=== PATIENT | female | born 1995 | race Caucasian/White ===

== ENCOUNTER 2017-02-24 13:01 | Emergency (ER) | payer OTHER ==
[~2017-02-24] VITALS: Ht 177.8 cm; Wt 123.8 kg
[2017-02-24 13:05] VITALS: TEMP 36.7; Ht 177.8 cm; Wt 123.8 kg
[2017-02-24] MEDS ORDERED: BCPILLS PO (13:14)
[2017-02-24] MEDS ORDERED: SODIUM CHLORIDE 0.9% 1000ML 1,000 ML IV STA (13:22)
--- NOTE | 2017-02-24 13:23 | EMERGENCY ROOM VISIT NOTE ---
History Report prepared by Claude: Flaca Kelly Under the Supervision of: Dr. Jam Medina D.O. First contact with patient: 13:09 Chief Complaint: FLANK PAIN Stated Complaint: RT BACK PAIN, LEG NUMBNESS, NAUSEA, BODY PAIN History of Present Illness The patient is a 21 year old female who presents to the Emergency Room with complaints of intermittent right flank pain for the past several weeks. Yesterday she was riding in a car and states her pain worsened because of the vehicle's seats and the motion of driving. She rates her current pain as an 8/ 10. She admits to nausea from her pain. Advil has provided no relief. Occasionally her pain radiates into her right leg, and makes the leg feel "numb ". She denies any chronic medical problems. She denies any abdominal pain or urinary symptoms. She denies any prior history of kidney stones but admits to a family history of stones. Source of History: patient Onset: several weeks [employer] Position: back Symptom Intensity: 8/10 Timing: intermittent Modifying Factors (Relieving): ibuprofen (Advil) Associated Symptoms: + numbness (right leg), No abdominal pain, No urinary symptoms Review of Systems See HPI for pertinent positives & negatives. A total of 10 systems reviewed and were otherwise negative. Past Medical & Surgical Medical Problems: (1) Tonsillar abscess (2) Gardners Teeth Removal Family History Kidney stones Social History Smoking Status: Never Smoker Alcohol Use: none Drug Use: none Marital Status: single Housing Status: lives with family Occupation Status: employed Current/Historical Medications Scheduled Control Pills ( Control Pills), 1 TAB PO DAILY Scheduled PRN Oxycodone Immediate Rel Tab (Roxicodone Ir), 1 TAB PO Q4H PRN for Severe Pain Allergies Coded Allergies: No Known Allergies (Unverified , 12/20/12) Physical Exam Vital Signs Date Time Temp Pulse Resp B/P (MAP) Pulse Ox O2 Delivery O2 Flow Rate FiO2 02/24/17 14:51 81 18 123/55 99 Room Air 02/24/17 13:52 74 02/24/17 13:05 36.7 83 18 148/80 100 Room Air Physical Exam GENERAL: Patient is awake, alert, in no acute distress patient is resting comfortably and showing no signs of anxiety EYES: The conjunctivae are clear. The pupils are round and reactive. EARS, NOSE, MOUTH AND THROAT: The nose is without any evidence of any deformity. Mucous membranes are moist tongue is midline NECK: The neck is nontender and supple. RESPIRATORY: Normal respiratory effort is noted there is no evidence of wheezing rhonchi or rales CARDIOVASCULAR: Regular rate and rhythm noted there no murmurs rubs or gallops normal S1 normal S2 GASTROINTESTINAL: The abdomen is soft. Bowel sounds are present in all quadrants. Abdomen is nontender PELVIS: The Pelvis is stable. No tenderness to palpation is noted. BACK: Right sided CVA tenderness to percussion, no midline tenderness noted. ROM appeared intact. MUSCULOSKELETAL/EXTREMITIES: There is no evidence of gross deformity full range of motion is noted in the hips and shoulders SKIN: There is no obvious evidence of any rash. There are no petechiae, pallor or cyanosis noted. NEUROLOGIC: Patient is awake alert and oriented x3 strength is symmetric patellar reflexes are 2+ bilaterally Medical Decision & Procedures ER Provider Diagnostic Interpretation: Radiology results as stated below per my review and radiologist interpretation: ABDOMEN AND PELVIS CT WITHOUT CONTRAST CT DOSE: 1688.28 mGy.cm HISTORY: right flank pain TECHNIQUE: Multiaxial CT images of the abdomen and pelvis were performed without contrast. A dose lowering technique was utilized adhering to the principles of ALARA. COMPARISON STUDY: Abdomen and pelvis CT 12/20/2012. FINDINGS: The lung bases are clear. No fractures within the visualized osseous structures. The unenhanced liver, gallbladder, spleen, adrenal glands, and pancreas are unremarkable. There are few punctate bilateral renal calculi. No ureteral stones. No hydronephrosis. No retroperitoneal lymphadenopathy. The uterus and bilateral adnexa are within normal limits. Bladder is not well-distended but appears unremarkable. There are few sigmoid diverticula. Suboptimal evaluation for bowel pathology due to the lack of intravenous and oral contrast. However, there is no definite bowel wall thickening or obstruction. Normal appendix. IMPRESSION: 1. Bilateral nephrolithiasis. No ureteral stones. No hydronephrosis. 2. No definite bowel wall thickening or obstruction. 3. Normal appendix. 4. A few colonic diverticula. Electronically signed by: Ryan Chavez M.D. 02/24/2017 2:25 PM Laboratory Results 02/24/17 13:30 Red Blood Count 4.63, Mean Corpuscular Volume 81.6, Mean Corpuscular Hemoglobin 27.0, Mean Corpuscular Hemoglobin Concent 33.1, Mean Platelet Volume 8.9, Neutrophils (%) (Auto) 68.0, Lymphocytes (%) (Auto) 23.0, Monocytes (%) (Auto) 6.7, Eosinophils (%) (Auto) 1.6, Basophils (%) (Auto) 0.2, Neutrophils # (Auto) 7.19, Lymphocytes # (Auto) 2.43, Monocytes # (Auto) 0.71, Eosinophils # (Auto) 0.17, Basophils # (Auto) 0.02 02/24/17 13:30 Test 02/24/17 13:30 White Blood Count 10.57 K/uL (4.8-10.8) Red Blood Count 4.63 M/uL (4.2-5.4) Hemoglobin 12.5 g/dL (12.0-16.0) Hematocrit 37.8 % (37-47) Mean Corpuscular Volume 81.6 fL (80-100) Mean Corpuscular Hemoglobin 27.0 pg (25-34) Mean Corpuscular Hemoglobin Concent 33.1 g/dl (32-36) Platelet Count 341 K/uL (130-400) Mean Platelet Volume 8.9 fL (7.4-10.4) Neutrophils (%) (Auto) 68.0 % Lymphocytes (%) (Auto) 23.0 % Monocytes (%) (Auto) 6.7 % Eosinophils (%) (Auto) 1.6 % Basophils (%) (Auto) 0.2 % Neutrophils # (Auto) 7.19 K/uL (1.4-6.5) Lymphocytes # (Auto) 2.43 K/uL (1.2-3.4) Monocytes # (Auto) 0.71 K/uL (0.11-0.59) Eosinophils # (Auto) 0.17 K/uL (0-0.5) Basophils # (Auto) 0.02 K/uL (0-0.2) RDW Standard Deviation 38.5 fL (36.4-46.3) RDW Coefficient of Variation 12.8 % (11.5-14.5) Immature Granulocyte % (Auto) 0.5 % Immature Granulocyte # (Auto) 0.05 K/uL (0.00-0.02) Platelet Estimate NORMAL Urine Color YELLOW Urine Appearance CLEAR (CLEAR) Urine pH 6.0 (4.5-7.5) Urine Specific [place] 1.032 (1.000-1.030) Urine Protein NEG (NEG) Urine Glucose (UA) NEG (NEG) Urine Ketones TRACE (NEG) Urine Occult Blood NEG (NEG) Urine Nitrite NEG (NEG) Urine Bilirubin NEG (NEG) Urine Urobilinogen NEG (NEG) Urine Leukocyte Esterase NEG (NEG) Anion Gap 9.0 mmol/L (3-11) Est Creatinine Clear Calc Drug Dose 194.2 ml/min Estimated GFR () 146.1 Estimated GFR (Non- 126.0 BUN/Creatinine Ratio 21.5 (10-20) Calcium Level 8.8 mg/dl (8.5-10.1) Total Bilirubin 0.1 mg/dl (0.2-1) Direct Bilirubin < 0.1 mg/dl (0-0.2) Aspartate Amino Transf (AST/SGOT) 10 U/L (15-37) Alanine Aminotransferase (ALT/SGPT) 18 U/L (12-78) Alkaline Phosphatase 63 U/L (45-117) Total Protein 7.3 gm/dl (6.4-8.2) Albumin 3.5 gm/dl (3.4-5.0) Lipase 116 U/L (73-393) Human Chorionic Gonadotropin, Qual NEG (NEG) Laboratory results per my review. Medications Administered Medications (Trade) Dose Ordered Sig/Yair Route Start Time Stop Time Status Last Admin Dose Admin Sodium Chloride 1,000 ml @ 999 mls/hr Q1H1M STAT IV 02/24/17 13:22 02/24/17 14:22 DC 02/24/17 13:41 999 MLS/HR ED Course 1318: The patient was evaluated in room C7. A complete history and physical examination were performed. 1322: NSS 1000 ml @ 999 mls/hr IV. 1510: I reevaluated the patient. She is feeling better. I discussed her results and discharge instructions and she verbalized complete understanding and agreement. Medical Decision Prior records/ancillary studies reviewed. Triage Nursing notes reviewed. The patient's history was concerning for kidney pain. Differential diagnosis: Etiologies such as renal colic, appendicitis, diverticulitis, mesenteric ischemia, aortic pathology, infections, inflammatory bowel disease, PUD, biliary pathology, UTI, as well as others were entertained. The patient is a 21-year-old female who presented to the emergency department for an evaluation of right flank pain. The patient had an acute onset of right flank pain which was worsened with movement. The patient did not have any urinary symptoms. The patient was concerned about appendicitis but the acuity of the pain made me feel this could be related to ureteral colic. The patient was treated with IV fluids in the emergency department. She did not wish to have any pain medication at this time. I discussed the patient's laboratory and radiographic studies with her. At this time I do feel this is likely musculoskeletal pain although she does have small kidney stones in her kidney and this could be related to a recently passed kidney stone. She does not have signs of urinary tract infection. She was encouraged to rest and avoid any strenuous activity. She was encouraged to continue all medications as prescribed and call her family doctor to schedule a follow-up appointment as soon as possible. She was also encouraged to return to the emergency department immediately if symptoms change worsen or the need arises. Medication Reconcilliation Current Medication List: was personally reviewed by me Blood Pressure Screening Patient's blood pressure: Elevated blood pressure Blood pressure disposition: Elevated BP felt to be situational Impression Primary Impression: Back pain Additional Impression: Kidney stones Scribe Attestation The scribe's documentation has been prepared under my direction and personally reviewed by me in its entirety. I confirm that the note above accurately reflects all work, treatment, procedures, and medical decision making performed by me. Departure Information Dispostion Home / Self-Care Prescriptions Oxycodone Immediate Rel Tab (ROXICODONE IR) 5 Mg Tab 1 TAB PO Q4H Y for Severe Pain, #24 TAB Prov: Jam Medina, 02/24/17 Referrals No Doctor, Assigned (PCP) Patient Instructions Low Back Pain Self Care, [facility] Additional Instructions Call your family to schedule a follow-up appointment. Rest and avoid any strenuous activity. Continue using Motrin and Tylenol as directed for pain. Return to the emergency Department immediately if symptoms change worsen or the need arises. Problem Qualifiers Primary Impression: Back pain Back pain location: low back pain Chronicity: acute Back pain laterality: right Sciatica presence: without sciatica Qualified Codes: M54.5 - Low back pain
[2017-02-24 14:07] LABS: URINE APPEARANCE CLEAR (CLEAR); URINE BILIRUBIN NEG (NEG); URINE COLOR YELLOW; URINE NITRITE NEG (NEG); URINE SPECIFIC GRAVITY 1.032 (1.000-1.030); UROBILINOGEN NEG (NEG)
[2017-02-24 14:10] LABS: MANUAL MICROSCOPIC REQUIRED? NO; REVIEW REQ? NO
[2017-02-24 14:11] LABS: ALT/SGPT 18 U/L (12-78); BLOOD UREA NITROGEN 14 mg/dl (7-18); BUN/CREATININE RATIO 21.5 (10-20); CALCIUM 8.8 mg/dl (8.5-10.1); CARBON DIOXIDE 24 mmol/L (21-32); CHLORIDE 108 mmol/L (98-107); CREATININE 0.65 mg/dl (0.60-1.20); GLUCOSE 95 mg/dl (70-99); POTASSIUM 4.1 mmol/L (3.5-5.1); SODIUM 141 mmol/L (136-145)
[2017-02-24 14:14] LABS: ALKALINE PHOSPHATASE 63 U/L (45-117); AST/SGOT 10 U/L (15-37)
[2017-02-24 14:22] LABS: HEMATOCRIT 37.8 % (37-47); MEAN CELL VOLUME 81.6 fL (80-100); MEAN CORPUSCULAR HGB CONC 33.1 g/dl (32-36); MEAN PLATELET VOLUME 8.9 fL (7.4-10.4); PLATELET COUNT 341 K/uL (130-400); RED BLOOD COUNT 4.63 M/uL (4.2-5.4); WHITE BLOOD COUNT 10.57 K/uL (4.8-10.8)
[2017-02-24 14:23] LABS: BASO % 0.2 %; BASO ABS # 0.02 K/uL (0-0.2); COMPLETE YES; EOS % 1.6 %; IG% 0.5 %; LYMPH ABS # 2.43 K/uL (1.2-3.4); MONO % 6.7 %; PLT ESTIMATE NORMAL
--- NOTE | 2017-02-24 14:26 | DIAGNOSTIC IMAGING REPORT ---
ABDOMEN AND PELVIS CT WITHOUT CONTRAST CT DOSE: 1688.28 mGy.cm HISTORY: right flank pain TECHNIQUE: Multiaxial CT images of the abdomen and pelvis were performed without contrast. A dose lowering technique was utilized adhering to the principles of ALARA. COMPARISON STUDY: Abdomen and pelvis CT 12/20/2012. FINDINGS: The lung bases are clear. No fractures within the visualized osseous structures. The unenhanced liver, gallbladder, spleen, adrenal glands, and pancreas are unremarkable. There are few punctate bilateral renal calculi. No ureteral stones. No hydronephrosis. No retroperitoneal lymphadenopathy. The uterus and bilateral adnexa are within normal limits. Bladder is not well-distended but appears unremarkable. There are few sigmoid diverticula. Suboptimal evaluation for bowel pathology due to the lack of intravenous and oral contrast. However, there is no definite bowel wall thickening or obstruction. Normal appendix. IMPRESSION: 1. Bilateral nephrolithiasis. No ureteral stones. No hydronephrosis. 2. No definite bowel wall thickening or obstruction. 3. Normal appendix. 4. A few colonic diverticula. Electronically signed by: Ryan Chavez M.D. 02/24/2017 2:25 PM Dictated Date/Time: 02/24/2017 2:18 PM
[2017-02-24 14:48] LABS: PREG INTERNAL NEGATIVE QC NEG CLEAR BACKGROUND; PREG INTERNAL POSITIVE QC POS CONTROL LINE
[2017-02-24 14:51] VITALS: BP 123/55; PULSE 81; O2SAT 99
[2017-02-24] MEDS ORDERED: OXYC1TAB3 PO (15:17)
== END 2017-02-24 15:20 | disposition home or self-care (01) ==
LOC: C.EDB 13:02 → C.EDC 15:20
DX: M54.5 Low back pain (principal); N20.0 Calculus of kidney

== ENCOUNTER → 2017-04-25 | Outpatient (CLI) | payer OTHER ==
[~2017-04-25] MED LIST: BCPILLS PO; OXYC1TAB3 PO
== END | disposition home or self-care (01) ==
LOC: C.LABSPEC 17:29
PROVIDERS: ATTEND Neuromusculoskeletal Medicine & OMM
DX: Z01.419 Encounter for gynecological examination (general) (routine) without abnormal findings (principal)

== ENCOUNTER → 2017-07-10 | Outpatient (CLI) | payer OTHER ==
[~2017-07-10] MED LIST changes: +OXYC-737 PO; -OXYC1TAB3 PO
== END | disposition home or self-care (01) ==
LOC: C.LABSPEC 16:50
PROVIDERS: ATTEND Family Medicine
DX: J02.9 Acute pharyngitis, unspecified (principal)

== ENCOUNTER 2024-11-30 13:25 | Inpatient (IN) ==
[2024-11-30] MEDS ORDERED: OXYTOCIN 30 UNITS/NSS 30 UNITS/500 ML BAG IV PRN (15:08)
[2024-11-30] MEDS ORDERED: CALCIUM CARBONATE 500 MG CHEWABLE TAB PO PRN (15:08)
[2024-11-30] MEDS ORDERED: LIDOCAINE 1% LOCAL 20 ML VIAL INFIL PRN (15:08)
--- NOTE | 2024-11-30 15:29 | History & Physical Report ---
Date of Service November 30, 2024 Assessment & Plan (1) Gestational diabetes: Plan IUP at 39 2/7 weeks induction for obesity and GDM diet-controlled. Penicillin prophylaxis will be started Pitocin induction protocol per labor and delivery as well. Epidural when requested. Anticipate vaginal delivery. Admission and Anticipated Discharge Date Admission Date: November 30, 2024 History of Present Illness Primary Care Provider: Vanessa Colindres DO Patient is a 29-year-old 3 para 0-0-2-0 female EDC 12/05/2024 who presents at 39-2/7 weeks for induction of labor because of gestational diabetes diet-controlled and obesity. testing has been reassuring. Last growth scan at 36 weeks showed an AC of 97 percentile but EFW 88th percentile. GBS is positive. She had a cervical balloon placed last evening and it delivered well she was being admitted for labor and delivery. Allergies Allergy/AdvReac Type Severity Reaction Status Date / Time No Known Drug Allergies Allergy Unknown Verified 11/30/24 14:00 Home Medications Medication Instructions Recorded Confirmed Type 21-iron fu-folic acid 1 pill PO DAILY 01/06/24 11/30/24 History [ Complete] aspirin 81 mg chewable tablet 162 mg PO DAILY 09/16/24 11/30/24 History acetone (urine) test (Ketone Urine #50 ea 10/02/24 11/27/24 Rx Test strips) blood sugar diagnostic (OneTouch #150 ea 10/02/24 11/27/24 Rx Verio test strips) lancets 33 gauge (OneTouch Delica #150 ea 10/02/24 11/27/24 Rx Plus Lancet) blood-glucose meter (OneTouch #1 ea 10/07/24 11/27/24 Rx Verio Flex Meter) Patient History Medical History (Updated 11/30/24 @ 15:28 by Grace Arambula MD, FACOG) Varicella vaccine Fertility testing Obese Missed Bilateral nephrolithiasis Segmental and somatic dysfunction of lumbar region Surgical History H/O dilation and curettage History of hysterosalpingogram Status post surgery removal of abscess on tonsil S/P wisdom tooth extraction Family History Father Diabetes Grandmother (Paternal) Diabetes Family/Other Hypothyroidism Denies family history of Ovarian cancer Myocardial infarction Breast cancer Colorectal cancer Social History Smoking Status: Never smoker Second Hand Exposure: No; Do You Dip or Chew Tobacco: No; Hx Alcohol Use: No Hx Substance Use: No Preferred Language: Argentine Communication Ability: Effective Visual Impairment: No Limitations Hearing Ability: Normal Rejogger Required: No Beliefs That Will Affect Care: None marital status: marital status details: Juan Ramon Coates (29) [phone] Current Living Situation: Spouse Current Living Situation Comment: lives with current occupational status: employed current occupation: Teacher Other Information That Helps Us Care for You: No Feels Safe at Home: Yes Safety Concerns: Feels Safe At This Time Childhood Exposure to Second-Hand Smoke: No Diet: regular Diet Comment: REGULAR Dental Care, Regularly: Yes Physical Activity Frequency: Daily Seatbelt Use: always Sunscreen Use: Yes Assistive Devices: None Review of Systems All systems reviewed & are unremarkable except as noted in HPI & below Physical Exam Constitutional: WD/WN, vitals as above Psychiatric: A+Ox3, euthymic affect Genitourinary: OB Exam Abdomen: + vertex, + estimated weight (8-9 pounds) and + irregular contractions Manual OB Exam: + cervical dilation 4 cm, + cervical effacement 80% and + station -2 (posterior) OB Exam Monitor Tracing: + external FHT monitor used, + external uterine monitor used, + category I and + normal FHT variability Results & Data Vital Signs (Past 12 Hours) Vital Signs Temp Pulse Resp BP 11/30/24 13:35 98.1 F 20 11/30/24 13:33 94 H 126/80 Coding Level of Care Code 53879 INT INP/OBS CARE 1/40MIN Diagnoses Diet controlled gestational diabetes mellitus (GDM) in third trimester O24.410 Gestational diabetes mellitus control: diet-controlled Trimester: third trimester (1) Gestational diabetes Gestational diabetes mellitus control: diet-controlled Trimester: third trimester Qualified Code(s): O24.410 - Gestational diabetes mellitus in , diet controlled
[2024-11-30] MEDS: OXYTOCIN 30 UNITS/NSS 30 UNITS/500 ML BAG IV PRN (15:30)
[2024-11-30] MEDS: LACTATED RINGER'S 1,000 ML IV PRN (15:30)
[2024-11-30 15:34] LABS: Hematocrit (blood only) 31.9 % (37.0-47.0); Hemoglobin 10.8 g/dl (12.0-16.0); Mean Corpuscular Hemoglobin 27.5 pg (25.0-34.0); Mean Corpuscular Hgb Conc 33.9 g/dL (32.0-36.0); Mean Corpuscular Volume 81.2 fL (80.0-100.0); Mean Platelet Volume 9.4 fL (9.4-12.4); Platelet Count 309 K/uL (130-400); RDW Coefficient of Variation 14.1 % (11.5-14.5); RDW Standard Deviation 41.6 fL (36.4-46.3); Red Blood Count 3.93 M/uL (4.20-5.40); White Blood Count 10.66 K/ul (4.8-10.8)
[2024-11-30] MEDS: PENICILLIN GK 6 MU in DEXTROSE 5% 250 ML IV STA (15:49)
[2024-11-30] MEDS: ACETAMINOPHEN 325 MG TAB PO PRN (19:19)
[2024-11-30] MEDS: PENICILLIN GK 3 MU in DEXTROSE 5% 100 ML IV PRN (19:24)
[2024-11-30] MEDS ORDERED: fentaNYL citrate PF 100 MCG/2 ML VIAL EPI PRN (21:21)
[2024-11-30] MEDS ORDERED: diphenhydrAMINE 50 MG/ML VIAL IV PRN (21:21)
[2024-11-30] MEDS ORDERED: NALBUPHINE HCL INJ 10 MG/ML AMP IV PRN (21:21)
[2024-11-30] MEDS ORDERED: SODIUM CHLORIDE 0.9% PF INJ 10 ML VIAL EPI PRN (21:21)
[2024-11-30] MEDS ORDERED: NALOXONE HCL 0.4 MG/1 ML VIAL/CARP IV PRN (21:21)
[2024-11-30] MEDS ORDERED: ePHEDrine sulfate 50 MG/ML AMP IV PRN (21:21)
[2024-11-30] MEDS ORDERED: LIDOCAINE 2% MPF LOCAL 5 ML VIAL EPI PRN (21:21)
[2024-11-30] MEDS ORDERED: BUPIVACAINE 0.25% PF 30 ML VIAL EPI PRN (21:21)
[2024-11-30] MEDS ORDERED: NALOXONE HCL 1 MG in SODIUM CHLORIDE 0.9% 1,000 ML IV PRN (21:21)
[2024-11-30] MEDS ORDERED: ROPIVACAINE 0.5% PF 5 MG/ML 20 ML VIAL EPI PRN (21:21)
--- NOTE | 2024-11-30 21:27 | Anesthesiology Consultation ---
Date of Service November 30, 2024 Assessment & Plan Chart Review Chart Review: Patient NOT seen in Pre Admission Testing and Acceptable Risk for Labor Epidural Consults Requested none ASA ASA3 Proposed Anesthesia Anesthesia Type: Labor Epidural Risk / Benefits Reviewed With: PT / POA / Parent / Guardian, Accepts Plan and Informed Consent Obtained History Height/Weight Height: 5 ft 8 in Weight: 139.253 kg Allergies Allergy/AdvReac Type Severity Reaction Status Date / Time No Known Drug Allergies Allergy Unknown Verified 11/30/24 14:00 Medications Home Medications Medication Instructions Recorded Confirmed Last Taken 21-iron fu-folic acid 1 pill PO DAILY 01/06/24 11/30/24 11/29/24 [ Complete] aspirin 81 mg chewable tablet 162 mg PO DAILY 09/16/24 11/30/24 11/30/24 06:30 acetone (urine) test (Ketone Urine #50 ea 10/02/24 11/27/24 Unknown Test strips) blood sugar diagnostic (OneTouch #150 ea 10/02/24 11/27/24 Unknown Verio test strips) lancets 33 gauge (OneTouch Delica #150 ea 10/02/24 11/27/24 Unknown Plus Lancet) blood-glucose meter (OneTouch #1 ea 10/07/24 11/27/24 Unknown Verio Flex Meter) Active Medications Generic Name Dose Route Start Last Admin Trade Name Freq PRN Reason Stop Dose Admin Acetaminophen 650 mg 11/30/24 15:08 11/30/24 19:19 Acetaminophen 325 Mg Tab PO 12/30/24 15:07 650 mg Q6H PRN Administration Pain Oxytocin 30 units in 500 mls @ 16 mls/hr 11/30/24 15:08 11/30/24 21:56 Pitocin 30 Units/Nss IV 12/02/24 15:07 1.08 units/hr .Q24H PRN 18 mls/hr Labor Induction/Augmentation Titration Protocol 0.96 UNITS/HR Lactated Ringer's 1,000 mls @ 125 mls/hr 11/30/24 15:08 11/30/24 15:30 Lr IV 12/02/24 15:07 125 mls/hr .Q8H PRN Administration L&D Protocol Protocol Penicillin G Potassium 3 mu/ 106 mls @ 100 mls/hr 11/30/24 18:09 11/30/24 19:24 Dextrose IV 05/29/25 18:08 100 mls/hr Q4H PRN Administration GBS(+) Until Delivery NPO Date Last Intake of Fluids: 11/30/24 Time Last Intake of Fluids: 21:00 Date Last Intake of Solids: 11/30/24 Time Last Intake of Solids: 13:00 Past Medical History Medical History Varicella vaccine Fertility testing Obese Missed Bilateral nephrolithiasis Segmental and somatic dysfunction of lumbar region Exercise / Class Metabolic Activity 1 > 8 Run/Swim/Ski/Tennis Past Family History Family History Father Diabetes Grandmother (Paternal) Diabetes Family/Other Hypothyroidism Denies family history of Ovarian cancer Myocardial infarction Breast cancer Colorectal cancer Past Surgical History Surgical History H/O dilation and curettage History of hysterosalpingogram Status post surgery removal of abscess on tonsil S/P wisdom tooth extraction Past Anesthesia History No Hx of Anesthesia Complications and No Family Hx of Anesthesia Complications History of PONV No Hx of PONV and No Hx of Motion Sickness Social History Smoking Status: Never smoker Do You Dip or Chew Tobacco: No Hx Alcohol Use: No Hx Substance Use: No substance use type: does not use Review of Systems ROS Unobtainable: All systems reviewed & are unremarkable except as noted in HPI & below Physical Exam Vital Signs Last Vital Signs Temp 36.9 C 11/30/24 19:02 Pulse 88 11/30/24 20:24 Resp 18 11/30/24 19:02 BP 123/71 11/30/24 20:24 O2 Del Method Room Air 11/30/24 19:15 ENMT Mouth: no TMJ abnormality Thyromental Distance: > or= 3.5 Finger Breadths Mallampati Class: II Neck normal visual inspection and trachea midline; neck extension not limited Respiratory normal respiratory effort Auscultation: lungs clear to auscultation bilaterally Cardiovascular Rate/Rhythm: regular rate and regular rhythm Heart Sounds: no murmur Musculoskeletal Spine: normal cervical ROM Extremities: full ROM of extremities Neurologic moves all extremities Psychiatric Orientation: alert and oriented x 3 Testing Laboratory Results 11/30/24 15:18 Blood Type B Positive 11/30/24 15:18 Antibody Screen NEGATIVE 11/30/24 15:18
[2024-11-30] MEDS: SODIUM CHLORIDE 0.9% PF INJ 10 ML VIAL ONE (21:54)
[2024-11-30] MEDS: BUPIVACAINE 0.25% PF 30 ML VIAL ONE (21:54)
[2024-11-30] MEDS: LIDOCAINE 2%/EPINEPHRINE 1:200,000 20 ML PF ONE (21:54)
[2024-11-30] MEDS: fentANYL 2 MCG/ML BUPIVacaine 0.125%-NSS 100ML BAG ONE (21:55)
[2024-11-30] MEDS: fentaNYL citrate PF 100 MCG/2 ML VIAL ONE (22:48)
[2024-12-01] MEDS: ePHEDrine sulfate 50 MG/ML AMP ONE (00:03)
[2024-12-01] MEDS: fentANYL 2 MCG/ML BUPIVacaine 0.125%-NSS 100ML BAG EPI PRN (07:01)
--- NOTE | 2024-12-01 08:17 | Labor Progress Brief Note ---
Date of Service December 01, 2024 Subjective comfortable, frustrated. Assessment & Plan (1) Obesity affecting : (2) Gestational diabetes: Gestational diabetes mellitus control: diet-controlled Trimester: third trimester Qualified Code(s): O24.410 - Gestational diabetes mellitus in , diet controlled (3) Encounter for induction of labor: Plan Has not been on pit for more than 24 hours. Has been rom for less than 12 hours. Is not in labor yet. Fetus overall category one. Discussion about lack of labor and lack of time to achieve labor. Recommend more time. However, patient can elect a c/s at any point in time. The risks of surgery were discussed with the patient including the risks of anesthesia, bleeding requiring transfusion, infection, poor wound healing, urinary retention, damage to surrounding structures including bowels, bladder, vessels, nerves and ureters that may require further surgery, hospitalization or intervention, injury to fetus. The other risks of any surgery were discussed including heart attack, blood clots, stroke or . discussed affect of previous c/s on next pregnancies. Patient wants to set a time to proceed with c/s. Discussed this is very difficult to determine and every patient is different. They are ok with continuing with induction at this point. Will half pit and go up again. Admission and Anticipated Discharge Date Admission Date: November 30, 2024 Physical Exam Physical Exam: cx--4.5-5, toco--iupc, intermittently working. q3-5, pit at 28, not adequate fse--140s with mod varaibility, accels to 160s, no decels Results & Data Vital Signs (Past 12 Hours) Vital Signs Temp Pulse Resp BP Pulse Ox 12/01/24 08:14 119/66 12/01/24 08:10 77 100 12/01/24 08:05 86 100 12/01/24 08:00 100 12/01/24 08:00 75 12/01/24 08:00 76 20 132/69 12/01/24 07:54 75 100 12/01/24 07:49 87 100 12/01/24 07:44 100 12/01/24 07:44 88 12/01/24 07:44 92 H 121/72 12/01/24 07:39 85 100 12/01/24 07:38 86 88 L 12/01/24 07:34 97 H 100 12/01/24 07:29 100 05 07:29 90 0520 07:29 90 125/57 L 05 07:27 36.8 C 20 05 07:24 91 H 100 05 07:19 90 99 05 07:14 100 05 07:14 96 H 05 07:14 90 132/83 05 07:09 93 H 100 05 07:04 94 H 100 05 06:59 89 100 05 06:58 80 105/55 L 05 06:54 87 100 05 06:49 78 99 05 06:44 100 05 06:44 79 05 06:44 80 108/58 L 05 06:39 78 99 05 06:34 81 99 05 06:29 81 99 05 06:28 80 91/50 L 05 06:24 82 98 05 06:19 81 99 05 06:14 99 05 06:14 79 05 06:14 82 104/50 L 05 06:09 82 99 05 06:04 83 99 05 05:59 99 05 05:59 81 05 05:59 75 102/54 L 05 05:53 76 99 05 05:48 82 100 05 05:46 90 113/69 052025 05:45 16 05 05:45 36.9 C 16 05 05:43 92 H 100 05 05:38 81 98 052025 05:33 81 98 0520 05:28 77 144/79 H 98 0520 05:23 78 99 05 05:18 79 100 0520 05:14 86 138/75 052025 05:13 84 99 0520 05:08 93 H 100 05 05:03 77 99 05 04:59 75 137/78 05 04:58 78 100 05 04:53 79 99 05 04:48 80 100 05 04:43 85 122/62 99 05 04:38 80 100 05 04:33 85 100 05 04:29 80 122/64 05 04:28 80 100 05 04:23 82 100 05 04:18 79 100 05 04:13 81 112/66 100 05 04:08 88 100 05 04:05 16 12/01/24 04:05 36.7 C 16 12/01/24 04:03 78 100 12/01/24 04:00 86 109/65 05 03:58 84 98 05 03:53 84 100 05 03:48 85 100 05 03:44 87 105/57 L 12/01/24 03:43 84 99 05 03:38 83 99 05 03:33 88 99 05 03:28 96 H 105/57 L 98 12/01/24 03:23 87 99 05 03:18 91 H 100 12/01/24 03:14 94 H 109/56 L 12/01/24 03:13 87 100 12/01/24 03:08 90 99 05 03:03 88 100 12/01/24 02:59 96 H 105/59 L 12/01/24 02:58 95 H 96 12/01/24 02:53 88 99 05 02:48 83 99 05 02:45 84 110/58 L 12/01/24 02:43 80 96 05 02:38 82 99 05 02:33 78 100 05 02:30 16 05 02:30 36.7 C 16 12/01/24 02:28 83 103/55 L 95 05 02:23 81 99 05 02:18 80 99 05 02:14 71 102/55 L 05 02:13 75 97 05/20/25 02:08 77 99 12/01/24 02:03 85 99 12/01/24 02:00 81 100/50 L 12/01/24 01:58 82 99 12/01/24 01:53 83 99 12/01/24 01:48 82 99 12/01/24 01:44 83 97/52 L 12/01/24 01:43 81 99 12/01/24 01:38 80 100 12/01/24 01:33 88 100 12/01/24 01:29 87 107/59 L 12/01/24 01:28 89 99 12/01/24 01:23 85 98 12/01/24 01:18 83 99 12/01/24 01:15 80 109/58 L 12/01/24 01:13 78 96 12/01/24 01:08 82 100 12/01/24 01:03 78 100 12/01/24 01:00 78 93/52 L 12/01/24 00:58 76 99 12/01/24 00:53 82 99 12/01/24 00:48 83 99 12/01/24 00:45 76 103/53 L 12/01/24 00:43 79 100 12/01/24 00:40 18 12/01/24 00:40 36.9 C 18 12/01/24 00:38 82 100 12/01/24 00:33 77 100 12/01/24 00:28 92 H 108/59 L 97 12/01/24 00:23 83 99 12/01/24 00:18 83 98 12/01/24 00:15 81 102/56 L 12/01/24 00:13 77 99 12/01/24 00:08 80 99 12/01/24 00:03 82 98 11/30/24 23:59 79 11/30/24 23:59 111/55 L 11/30/24 23:58 98 11/30/24 23:58 79 11/30/24 23:53 98 11/30/24 23:53 83 11/30/24 23:48 100 11/30/24 23:48 87 11/30/24 23:44 84 11/30/24 23:44 113/58 L 11/30/24 23:43 98 11/30/24 23:43 86 11/30/24 23:38 98 11/30/24 23:38 87 11/30/24 23:33 99 11/30/24 23:33 90 11/30/24 23:29 89 11/30/24 23:29 113/59 L 11/30/24 23:28 100 11/30/24 23:28 90 11/30/24 23:23 18 11/30/24 23:23 36.8 C 18 11/30/24 23:23 99 11/30/24 23:23 85 11/30/24 23:18 98 11/30/24 23:18 77 11/30/24 23:13 100 11/30/24 23:13 77 11/30/24 23:08 99 11/30/24 23:08 93 H 11/30/24 23:08 132/64 11/30/24 23:03 97 11/30/24 23:03 82 11/30/24 23:02 78 11/30/24 23:02 133/63 11/30/24 22:58 97 11/30/24 22:58 80 11/30/24 22:58 129/60 11/30/24 22:53 98 11/30/24 22:53 87 11/30/24 22:52 82 11/30/24 22:52 135/59 L 11/30/24 22:48 97 11/30/24 22:48 85 11/30/24 22:48 86 11/30/24 22:48 136/65 11/30/24 22:43 98 11/30/24 22:43 81 11/30/24 22:42 85 11/30/24 22:42 138/67 11/30/24 22:38 98 11/30/24 22:38 80 11/30/24 22:37 81 11/30/24 22:37 136/71 11/30/24 22:34 86 11/30/24 22:34 134/72 11/30/24 22:33 98 11/30/24 22:33 85 11/30/24 22:28 98 11/30/24 22:28 87 11/30/24 22:27 79 11/30/24 22:27 137/73 11/30/24 22:25 88 11/30/24 22:25 136/71 11/30/24 22:23 99 11/30/24 22:23 89 11/30/24 22:18 99 11/30/24 22:18 94 H 11/30/24 22:17 83 11/30/24 22:17 131/63 11/30/24 22:13 100 11/30/24 22:13 84 11/30/24 22:13 83 11/30/24 22:13 131/61 11/30/24 22:08 100 11/30/24 22:08 94 H 11/30/24 22:07 85 11/30/24 22:07 135/62 11/30/24 22:03 99 11/30/24 22:03 86 11/30/24 22:02 88 11/30/24 22:02 131/65 11/30/24 21:58 99 11/30/24 21:58 82 11/30/24 21:57 86 11/30/24 21:57 128/67 11/30/24 21:55 82 11/30/24 21:55 128/68 11/30/24 21:53 99 11/30/24 21:53 94 H 11/30/24 21:53 133/72 11/30/24 21:51 82 11/30/24 21:51 131/75 11/30/24 21:48 100 11/30/24 21:48 95 H 11/30/24 21:43 99 11/30/24 21:43 92 H 11/30/24 21:39 86 11/30/24 21:39 139/77 11/30/24 21:38 100 11/30/24 21:38 96 H 11/30/24 21:33 100 11/30/24 21:33 125 H 11/30/24 21:28 100 11/30/24 21:28 97 H 11/30/24 20:24 88 11/30/24 20:24 123/71 Coding Level of Care Code None Diagnoses Obesity affecting O99.210 Diet controlled gestational diabetes mellitus (GDM) in third trimester O24.410 Gestational diabetes mellitus control: diet-controlled Trimester: third trimester Encounter for induction of labor Z34.90
[2024-12-01] MEDS ORDERED: MoRPHine SULFATE PF 1 MG/ML 10 ML AMP/VIAL ONE (13:55)
--- NOTE | 2024-12-01 13:55 | Labor Progress Brief Note ---
Date of Service December 01, 2024 Subjective comfortable, frustrated. Assessment & Plan (1) Encounter for induction of labor: Plan Discussed again the options--continued induction or c/s. Discussed that I suspected that she was not going to be changed as not adequate and probably will not be in a few hours at 3. discussed that she needs to be in it for the long chung. she is really just too anxious to continue the induction. she is c oncerned she would never get to complete and then if she did, she would not be able to push out a baby. She would rather do it now, electively. again discussed the risks, consent signed and plan to move on . fetus category one. Admission and Anticipated Discharge Date Admission Date: November 30, 2024 Physical Exam Physical Exam: cx--4.5-5, 80/-3 toco--iupc, q3-5, pit at 30, not adequate fse--140s with mod varaibility, accels to 160s, no decels Results & Data Vital Signs (Past 12 Hours) Vital Signs Temp Pulse Resp BP Pulse Ox 12/01/24 13:50 88 99 12/01/24 13:45 100 12/01/24 13:45 83 12/01/24 13:45 86 143/80 H 12/01/24 13:40 86 100 12/01/24 13:35 87 100 12/01/24 13:30 20 12/01/24 13:30 20 12/01/24 13:30 100 12/01/24 13:30 88 12/01/24 13:30 85 153/77 H 12/01/24 13:25 20 12/01/24 13:25 36.7 C 90 20 100 12/01/24 13:20 99 H 99 12/01/24 13:15 89 100 12/01/24 13:14 86 142/75 H 12/01/24 13:10 105 H 100 12/01/24 13:05 83 100 12/01/24 13:00 79 100 12/01/24 12:59 80 128/69 12/01/24 12:55 84 99 12/01/24 12:50 75 100 12/01/24 12:45 100 12/01/24 12:45 92 H 12/01/24 12:45 78 131/71 05/20/25 12:40 79 100 05/20/25 12:35 97 H 100 05/20/25 12:30 20 05/20/25 12:30 20 05/20/25 12:30 100 05/20/25 12:30 92 H 05/20/25 12:30 77 132/68 05/20/25 12:25 78 100 05/20/25 12:20 85 100 05/20/25 12:15 77 100 05/20/25 12:14 75 129/75 05/20/25 12:10 82 100 05/20/25 12:05 83 100 05/20/25 12:00 87 100 05/20/25 11:59 84 128/74 05/20/25 11:55 89 100 05/20/25 11:50 82 100 05/20/25 11:45 88 100 05/20/25 11:43 78 124/68 05/20/25 11:40 80 100 05/20/25 11:35 85 100 05/20/25 11:30 20 05/20/25 11:30 36.7 C 20 05/20 11:30 100 05/20/25 11:30 79 05/20/25 11:30 87 121/69 05/20/25 11:25 76 100 05/20/25 11:20 75 99 05/20/25 11:15 76 100 05/20/25 11:14 70 128/63 05/20/25 11:10 81 99 05/20/25 11:05 77 98 05/20/25 11:00 79 18 124/62 98 05/20/25 10:55 80 98 05/20/25 10:50 77 98 05/20/25 10:45 78 98 05/20/25 10:43 75 125/62 05/20/25 10:40 78 98 05/20/25 10:35 79 99 05/20/25 10:30 77 18 98 05/20/25 10:28 75 123/59 L 05/20/25 10:25 76 98 05/20/25 10:20 82 98 05/20/25 10:15 81 98 05/20/25 10:13 74 125/65 05/20/25 10:10 79 98 05/20/25 10:05 76 98 05/20/25 10:00 80 18 98 05/20/25 09:58 74 122/64 05/20/25 09:55 76 98 05/20/25 09:50 77 98 05/20/25 09:45 77 98 05/20/25 09:44 73 123/64 05/20/25 09:40 76 99 05/20/25 09:35 75 100 05/20/25 09:30 79 20 100 05/20/25 09:28 78 131/69 05/20/25 09:25 85 100 05/20/25 09:20 87 99 05/20/25 09:15 75 100 05/20/25 09:14 76 124/66 05/20/25 09:10 73 100 05/20/25 09:05 73 99 05/20/ 09:00 36.7 C 80 20 100 05/20/25 08:59 82 131/76 05/20/25 08:55 79 99 05/20/25 08:50 84 97 05/20/25 08:45 83 98 05/20/ 08:44 85 124/74 05/20/25 08:40 75 100 05/20/25 08:35 73 99 05/20/25 08:30 76 20 100 05/20/25 08:29 74 121/64 05/20/25 08:25 73 100 05/20/25 08:20 86 100 05/20/25 08:15 79 100 05/20/25 08:14 76 119/66 05/20/25 08:10 77 100 05/20/25 08:05 86 100 05/20/25 08:00 100 05/20/25 08:00 75 05/20/25 08:00 76 20 132/69 05/20/25 07:54 75 100 05/20/25 07:49 87 100 05/20/25 07:44 100 05/20/25 07:44 88 05/20/25 07:44 92 H 121/72 05/20/25 07:39 85 100 05/20/25 07:38 86 88 L 05/20/25 07:34 97 H 100 05/20/25 07:29 100 05/20/25 07:29 90 05/20/25 07:29 90 125/57 L 05/20/25 07:27 36.8 C 20 05/20 07:24 91 H 100 05/20/25 07:19 90 99 05/20/25 07:14 100 05/2025 07:14 96 H 052025 07:14 90 132/83 05/20 07:09 93 H 100 0520 07:04 94 H 100 0520 06:59 89 100 0520/25 06:58 80 105/55 L 0520 06:54 87 100 0520 06:49 78 99 0520 06:44 100 0520 06:44 79 0520 06:44 80 108/58 L 0520 06:39 78 99 05/20 06:34 81 99 0520 06:29 81 99 0520 06:28 80 91/50 L 05 06:24 82 98 0520 06:19 81 99 0520 06:14 99 05 06:14 79 05 06:14 82 104/50 L 05 06:09 82 99 0520 06:04 83 99 0520 05:59 99 05/20/25 05:59 81 05/20/25 05:59 75 102/54 L 05 05:53 76 99 05/20/ 05:48 82 100 05/20/25 05:46 90 113/69 05/20/25 05:45 16 05/20/25 05:45 36.9 C 16 05 05:43 92 H 100 0520/25 05:38 81 98 05/20/25 05:33 81 98 05/20/25 05:28 77 144/79 H 98 05/20/25 05:23 78 99 05/20/25 05:18 79 100 05/20/25 05:14 86 138/75 05/20/25 05:13 84 99 05/20/25 05:08 93 H 100 05/20/25 05:03 77 99 05/20/25 04:59 75 137/78 05/20/25 04:58 78 100 05/20/25 04:53 79 99 05/20/25 04:48 80 100 05/20/25 04:43 85 122/62 99 05/20/25 04:38 80 100 12/01/24 04:33 85 100 12/01/24 04:29 80 122/64 05 04:28 80 100 12/01/24 04:23 82 100 12/01/24 04:18 79 100 12/01/24 04:13 81 112/66 100 12/01/24 04:08 88 100 12/01/24 04:05 16 12/01/24 04:05 36.7 C 16 12/01/24 04:03 78 100 12/01/24 04:00 86 109/65 12/01/24 03:58 84 98 12/01/24 03:53 84 100 12/01/24 03:48 85 100 12/01/24 03:44 87 105/57 L 12/01/24 03:43 84 99 12/01/24 03:38 83 99 12/01/24 03:33 88 99 12/01/24 03:28 96 H 105/57 L 98 12/01/24 03:23 87 99 12/01/24 03:18 91 H 100 12/01/24 03:14 94 H 109/56 L 12/01/24 03:13 87 100 12/01/24 03:08 90 99 12/01/24 03:03 88 100 12/01/24 02:59 96 H 105/59 L 12/01/24 02:58 95 H 96 12/01/24 02:53 88 99 12/01/24 02:48 83 99 12/01/24 02:45 84 110/58 L 12/01/24 02:43 80 96 12/01/24 02:38 82 99 12/01/24 02:33 78 100 12/01/24 02:30 16 12/01/24 02:30 36.7 C 16 12/01/24 02:28 83 103/55 L 95 12/01/24 02:23 81 99 12/01/24 02:18 80 99 12/01/24 02:14 71 102/55 L 12/01/24 02:13 75 97 12/01/24 02:08 77 99 12/01/24 02:03 85 99 12/01/24 02:00 81 100/50 L 12/01/24 01:58 82 99 12/01/24 01:53 83 99 Coding Level of Care Code None Diagnoses Encounter for induction of labor Z34.90
[2024-12-01] MEDS ORDERED: OXYTOCIN 10 UNITS/ML VIAL ONE ×2 (13:58→14:57)
[2024-12-01] MEDS ORDERED: ONDANSETRON INJ 2 MG/ML 2 ML VIAL ONE (13:58)
[2024-12-01] MEDS ORDERED: DEXAMETHASONE SOD INJ 4 MG/ML VIAL ONE (13:58)
[2024-12-01] MEDS ORDERED: METOCLOPRAMIDE HCL INJ 5 MG/ML 2 ML VIAL ONE (13:58)
[2024-12-01] MEDS: ceFAZolin 3000MG 3,000 MG/72.5 ML BAG IV SCH (14:00)
[2024-12-01] MEDS ORDERED: LIDOCAINE 2%/EPINEPHRINE 1:200,000 20 ML PF ONE (14:00)
[2024-12-01] MEDS ORDERED: AZITHROMYCIN 500 MG/255 ML BAG IV SCH (14:00)
[2024-12-01] MEDS: ACETAMINOPHEN 500 MG TAB PO SCH (14:08)
[2024-12-01] MEDS: CITRIC ACID/SODIUM CITRATE 15 ML UDC PO SCH (14:10)
[2024-12-01] MEDS ORDERED: CARBOPROST TROMETHAMINE 250 MCG/ML AMPUL ONE (14:41)
[2024-12-01] MEDS ORDERED: LACTATED RINGER'S 1,000 ML IV SCH ×2 (14:45→15:37)
[2024-12-01] MEDS ORDERED: diphenhydrAMINE 50 MG/ML VIAL IV PRN ×2 (14:53→15:37)
[2024-12-01] MEDS ORDERED: ePHEDrine sulfate 50 MG/ML AMP IV PRN (14:53)
[2024-12-01] MEDS ORDERED: NALBUPHINE HCL INJ 10 MG/ML AMP IV PRN (14:53)
[2024-12-01] MEDS ORDERED: LACTATED RINGER'S 500 ML IV PRN (14:53)
[2024-12-01] MEDS ORDERED: oxyCODONE HCL IR 5 MG TAB (IMMEDIATE RELEASE) PO PRN (14:53)
[2024-12-01] MEDS ORDERED: PROMETHAZINE 6.25 MG/50.25 ML BAG IV PRN (14:53)
[2024-12-01] MEDS ORDERED: MoRPHine SULFATE 2 MG/ML CARP IV PRN (14:53)
[2024-12-01] MEDS ORDERED: NALOXONE HCL 0.4 MG/1 ML VIAL/CARP IV PRN (14:53)
[2024-12-01] MEDS ORDERED: NALOXONE HCL 0.08 MG in SYRINGE 1.8 ML IV PRN (14:53)
[2024-12-01] MEDS ORDERED: NALOXONE HCL 1 MG in SODIUM CHLORIDE 0.9% 1,000 ML IV PRN (14:53)
[2024-12-01] MEDS ORDERED: DC INTRASPINAL MORPHINE SCH (15:00)
[2024-12-01] MEDS ORDERED: NO NARCOTICS OR SEDATIVES SCH (15:00)
[2024-12-01] MEDS ORDERED: SODIUM CHLORIDE 0.9% 1,000 ML IV SCH (15:00)
[2024-12-01] MEDS ORDERED: CARBOPROST TROMETHAMINE 250 MCG/ML AMPUL IM ONE (15:05)
--- NOTE | 2024-12-01 15:29 | Operative Report ---
PG Post Operative Report Pre & Post Diagnosis Operation Date: 12/01/24 14:00 Pre-Op Diagnosis: 1. Term 2. GDM 3. Failed elective induction Post-Op Diagnosis: Same I identified the patient and participated in the time-out.: Yes Procedure Operation Date: 12/01/24 14:00 Actual Procedures p primary low transverse Section in LD with the of a live female chlid at 1439. - Shraddha Barrett MD, FACOG Surgeon Shraddha Barrett MD, FACOG Photo Print Specialist Mitchell Swanson, MS2, H. Wisor, TEMPORARY OFFICE ASSISTANT Estimated Blood Loss 379 (QBL) Findings Consistent with Post-Op Diagnosis Viable female infant in allan, not engaged, apgars 8/9. NOrmal uterus , tubes, ovs bilaterally. Fluids 1000cc uop--100cc Specimens none Drains gonzalez Anesthesia Type Labor Epidural Complications none Disposition Accompanied Patient To Recovery: No Disposition: L&D Indications Patient is a 29yowf at 39 weeks with iol for gdm, obesity. She failed to labor and elected primary c/s. Description of Procedure The patient was taken to the operating room where she was identified verbally and by bracelet. She was seated on the operating table where a spinal anesthetic was placed by anesthesia. She was then placed in the supine position with a leftward tilt. A Gonzalez catheter was placed sterilely. the patient was prepped and draped in a normal standard fashion. the anesthetic was tested and found to be adequate. A time-out was held, identifying correct patient, procedure, positioning and preoperative antibiotics. There were no concerns. A Pfannenstiel skin incision was made with a knife and taken down to the und erlying layer of fascia with the knife and Bovie electrocautery. Bleeding was attended to with the Bovie. The fascia was incised in the midline with the knife and taken out laterally with scissors. The superior edge of the fascial incision was grasped, elevated and the underlying layer of rectus muscle was taken off bluntly and with scissors. In a similar fashion, the inferior edge of the fascial incision was grasped, elevated and the underlying layer of rectus muscle was taken off bluntly and with scissors. The muscles were bluntly in the midline. The peritoneum was entered bluntly. The incision was then stretched. The bladder blade was placed. The vesicouterine peritoneum was identified, entered with scissors and taken out laterally with scissors. The bladder flap was created digitally A hysterotomy incision was scored with a knife and the incision was stretched superiorly and inferiorly with the dividing machine operator's fingers. The operators hand was placed into the incision and the head was delivered atraumatically. Loose nuchal cord. The nose and mouth were bulb suctioned. the rest of the infant was then delivered without difficulty. The nose and mouth were again bulb suctioned. The cord was clamped and cut and the was then handed off to the awaiting generation mechanic helper for drying and attention. Cord blood obtained. The placenta was Manually extracted. The uterus was exteriorized and cleared of all clot and debris with moistened laparotomy sponges. The hysterotomy incision was repaired in two layers, the first in a running locked layer, the second in an imbricating layer. The uterus was boggy and Hemabate was injected into the uterus. Several figure of eight sutures of O-Vicryl needed for hemostasis. Hemostasis was noted to be good. Posterior cul-de-sac was irrigated and cleared of all clot and debris. The hysterotomy incision was again inspected and found to be hemostatic. the uterus was reinteriorized. Hysterotomy incision was a gain inspected and found to be hemostatic. The fascia was then reapproximated with 0 Vicryl starting at the edges and meeting in the midline. The subcuticular tissues were copiously irrigated and bleeding was attended to with cautery. Several horizontal mattress sutures of 2-0 Plain gut were used to close the sub-Q space. The skin was then closed with 4-0 Vicryl in a subcuticular fashion. al sponge, lap and needle counts were correct x 2. The patient was taken to recovery in stable condition. 800mcg of cytotec were placed rectally prior to the patient leaving the OR. I attest to the content of the Intraoperative Record and any orders documented therein. Any exceptions are noted below. OB Procedure Charges 30685
[2024-12-01] MEDS ORDERED: HYDROmorphone INJ 0.5 MG/0.5 ML SYR IV PRN (15:37)
[2024-12-01] MEDS ORDERED: DIPHTHER/TETAN/PERTUS Vaccine (Tdap, Adol/Adult) 0.5mL IM ONE (15:37)
[2024-12-01] MEDS ORDERED: ONDANSETRON INJ 2 MG/ML 2 ML VIAL IV PRN (15:37)
[2024-12-01] MEDS ORDERED: diphenhydrAMINE Capsule 25 MG CAP PO PRN (15:37)
[2024-12-01] MEDS ORDERED: SENNA 8.6 MG TAB PO PRN (15:37)
[2024-12-01] MEDS ORDERED: PROMETHAZINE 12.5 MG/50.5 ML BAG IV PRN (15:37)
[2024-12-01] MEDS ORDERED: BENZOCAINE 20% SPRY 85 APPLN/85 GM CAN EXT PRN (15:37)
[2024-12-01] MEDS ORDERED: HYDROCORTISONE ACETATE 25 MG SUPP PR PRN (15:37)
[2024-12-01] MEDS ORDERED: CALCIUM CARBONATE 500 MG CHEWABLE TAB PO PRN (15:37)
[2024-12-01] MEDS ORDERED: MAGNESIUM HYDROXIDE SUSP 30 ML UDC PO PRN (15:37)
[2024-12-01] MEDS: ONDANSETRON INJ 2 MG/ML 2 ML VIAL IV PRN (15:38)
[2024-12-01] MEDS: BUPIVACAINE 0.25% PF 30 ML VIAL EPI STA (15:40)
[2024-12-01] MEDS: fentaNYL citrate PF 100 MCG/2 ML VIAL EPI STA (15:40)
[2024-12-01] MEDS: SODIUM CHLORIDE 0.9% PF INJ 10 ML VIAL EPI STA (15:40)
[2024-12-01] MEDS: LIDOCAINE 2%/EPINEPHRINE 1:200,000 20 ML PF EPI STA (15:40)
[2024-12-01] MEDS: KETOROLAC 30 MG/ML VIAL ONE (15:41)
[2024-12-01] MEDS: LACTATED RINGER'S 1,000 ML IV SCH (15:41)
[2024-12-01] MEDS: MoRPHine SULFATE PF 1 MG/ML 10 ML AMP/VIAL EPI ONE (15:41)
[2024-12-01] MEDS: miSOPROStoL 200 MCG TAB PR ONE (16:31)
[2024-12-01] MEDS: miSOPROStoL 200 MCG TAB ONE (16:34)
--- NOTE | 2024-12-01 17:03 | Anesthesia Procedure Note ---
Date of Service December 01, 2024 Anesthesia Post Epidural Note Vital Signs Vital Signs: Temp Pulse Resp BP Pulse Ox O2 Del Method 36.7 C 76 20 122/70 98 Room Air 12/01/24 13:25 12/01/24 17:01 12/01/24 16:46 12/01/24 16:46 12/01/24 17:01 11/30/24 19:15 Notes Mental Status: alert / awake / arousable and participated in evaluation Nausea / Vomiting: adequately controlled Pain: adequately controlled Airway Patency, RR, SpO2: stable & adequate BP & HR: stable & adequate Hydration State: stable & adequate Neuraxial Anesthesia: was administered and sensory block is resolving Anesthetic Complications: no major complications apparent Epidural: Removed without complications and With tip intact
--- NOTE | 2024-12-01 17:04 | Anesthesiology Progress Note ---
Date of Service December 01, 2024 Anesthesia Post Procedure Vital Signs Vital Signs: Temp Pulse Resp BP Pulse Ox O2 Del Method 12/01/24 17:01 76 98 12/01/24 16:56 77 98 12/01/24 16:51 79 98 12/01/24 16:46 20 12/01/24 16:46 72 122/70 98 12/01/24 16:41 76 98 12/01/24 16:36 80 97 12/01/24 16:31 75 97 12/01/24 16:26 73 98 12/01/24 16:21 78 98 12/01/24 16:16 20 12/01/24 16:16 75 113/59 L 97 12/01/24 16:11 76 98 12/01/24 16:06 18 12/01/24 16:06 99 12/01/24 16:06 77 12/01/24 16:06 107 H 111/53 L 12/01/24 16:01 74 98 12/01/24 15:56 20 12/01/24 15:56 73 112/53 L 98 12/01/24 15:51 74 98 12/01/24 15:46 20 12/01/24 15:46 79 113/63 97 12/01/24 15:41 70 99 12/01/24 15:36 20 12/01/24 15:36 75 110/53 L 99 12/01/24 15:31 91 12/01/24 15:31 77 12/01/24 15:31 78 92 12/01/24 15:26 20 12/01/24 15:26 98 12/01/24 15:26 73 12/01/24 15:26 78 109/59 L 12/01/24 15:21 74 98 12/01/24 15:18 75 112/53 L 12/01/24 15:17 78 91/46 L 12/01/24 15:16 78 99 12/01/24 14:15 117 H 100 12/01/24 14:14 136 H 139/88 12/01/24 14:10 94 H 100 12/01/24 14:05 87 99 12/01/24 14:00 86 20 100 12/01/24 13:59 85 130/80 12/01/24 13:55 86 99 12/01/24 13:50 88 99 05/20/25 13:45 100 05/20/25 13:45 83 05/20/25 13:45 86 143/80 H 05/20/25 13:40 86 100 05/20/25 13:35 87 100 05/20/25 13:30 20 05/20/25 13:30 20 05/20/25 13:30 100 05/20/25 13:30 88 05/20 13:30 85 153/77 H 05/20 13:25 20 05/20 13:25 36.7 C 90 20 100 05/20/25 13:20 99 H 99 05/20/ 13:15 89 100 05/20/ 13:14 86 142/75 H 05/20 13:10 105 H 100 05/20 13:05 83 100 05/20 13:00 79 100 05/20 12:59 80 128/69 05/20/25 12:55 84 99 05/20 12:50 75 100 05/20/25 12:45 100 05/20/25 12:45 92 H 05/20/25 12:45 78 131/71 05/20/25 12:40 79 100 05/20/25 12:35 97 H 100 05/20 12:30 20 05/20 12:30 20 05/20/ 12:30 100 05/20/25 12:30 92 H 05/2025 12:30 77 132/68 05/20/25 12:25 78 100 05/20/25 12:20 85 100 05/20/25 12:15 77 100 05/20/25 12:14 75 129/75 05/20/25 12:10 82 100 05/20/25 12:05 83 100 05/20/25 12:00 87 100 05/20/25 11:59 84 128/74 05/20/25 11:55 89 100 05/20/25 11:50 82 100 05/20/25 11:45 88 100 05/20/25 11:43 78 124/68 05/20/25 11:40 80 100 05/20/25 11:35 85 100 05/20/25 11:30 20 05/20/25 11:30 36.7 C 20 05/2025 11:30 100 05/20/25 11:30 79 05/20/25 11:30 87 121/69 05/20/25 11:25 76 100 05/20/25 11:20 75 99 05/20/25 11:15 76 100 05/20/25 11:14 70 128/63 05/20/25 11:10 81 99 05/20/25 11:05 77 98 05/20/25 11:00 79 18 124/62 98 05/20/25 10:55 80 98 05/20/25 10:50 77 98 05/20/25 10:45 78 98 05/20/25 10:43 75 125/62 05/20/25 10:40 78 98 05/20/25 10:35 79 99 05/20/25 10:30 77 18 98 05/20/25 10:28 75 123/59 L 05/20/25 10:25 76 98 05/20/25 10:20 82 98 05/20/25 10:15 81 98 05/20/25 10:13 74 125/65 05/20/25 10:10 79 98 05/20/25 10:05 76 98 05/20/25 10:00 80 18 98 05/20/25 09:58 74 122/64 05/20/25 09:55 76 98 05/20/25 09:50 77 98 05/20/25 09:45 77 98 05/20/25 09:44 73 123/64 05/20/25 09:40 76 99 05/20/25 09:35 75 100 05/20/25 09:30 79 20 100 05/20/25 09:28 78 131/69 05/20/25 09:25 85 100 05/20/25 09:20 87 99 05/20/25 09:15 75 100 05/20/25 09:14 76 124/66 05/20/25 09:10 73 100 05/20/25 09:05 73 99 05/20/25 09:00 36.7 C 80 20 100 05/20/25 08:59 82 131/76 05/20/25 08:55 79 99 05/20/25 08:50 84 97 05/20/25 08:45 83 98 05/20/25 08:44 85 124/74 05/20/25 08:40 75 100 05/20/25 08:35 73 99 05/20/25 08:30 76 20 100 05 08:29 74 121/64 05 08:25 73 100 05 08:20 86 100 05 08:15 79 100 05 08:14 76 119/66 05 08:10 77 100 05 08:05 86 100 05 08:00 100 05 08:00 75 05 08:00 76 20 132/69 05 07:54 75 100 05 07:49 87 100 05 07:44 100 12/01/24 07:44 88 05 07:44 92 H 121/72 05 07:39 85 100 05 07:38 86 88 L 12/01/24 07:34 97 H 100 12/01/24 07:29 100 12/01/24 07:29 90 05 07:29 90 125/57 L 12/01/24 07:27 36.8 C 20 12/01/24 07:24 91 H 100 05 07:19 90 99 12/01/24 07:14 100 12/01/24 07:14 96 H 12/01/24 07:14 90 132/83 05 07:09 93 H 100 12/01/24 07:04 94 H 100 05 06:59 89 100 05 06:58 80 105/55 L 05 06:54 87 100 05 06:49 78 99 05 06:44 100 05 06:44 79 05 06:44 80 108/58 L 05 06:39 78 99 05 06:34 81 99 05 06:29 81 99 05 06:28 80 91/50 L 05 06:24 82 98 05 06:19 81 99 0520 06:14 99 0520 06:14 79 05 06:14 82 104/50 L 05 06:09 82 99 05/20/25 06:04 83 99 05/20/25 05:59 99 05/20/25 05:59 81 05/20/25 05:59 75 102/54 L 05/20/25 05:53 76 99 05/20/25 05:48 82 100 05/20/25 05:46 90 113/69 05/20/25 05:45 16 05/20/25 05:45 36.9 C 16 0520 05:43 92 H 100 05/20/25 05:38 81 98 05/20/25 05:33 81 98 05/20/25 05:28 77 144/79 H 98 05/20/25 05:23 78 99 05/20/25 05:18 79 100 05/20/25 05:14 86 138/75 05/20/25 05:13 84 99 05/20/25 05:08 93 H 100 05 05:03 77 99 05/20/25 04:59 75 137/78 05/20/25 04:58 78 100 05/20/25 04:53 79 99 05/20/25 04:48 80 100 05/20/25 04:43 85 122/62 99 05/20/25 04:38 80 100 05/20/25 04:33 85 100 05/20/25 04:29 80 122/64 05/20/25 04:28 80 100 05/20/25 04:23 82 100 05/20/25 04:18 79 100 05/20/25 04:13 81 112/66 100 05/20/25 04:08 88 100 05/20/25 04:05 16 05/20/25 04:05 36.7 C 16 0520/25 04:03 78 100 05/20/25 04:00 86 109/65 05/20/25 03:58 84 98 05/20/25 03:53 84 100 05/20/25 03:48 85 100 05/20/25 03:44 87 105/57 L 05/20/25 03:43 84 99 05/20/25 03:38 83 99 05/20/25 03:33 88 99 05/20/25 03:28 96 H 105/57 L 98 05/20/25 03:23 87 99 05/20/25 03:18 91 H 100 05/20/25 03:14 94 H 109/56 L 12/01/24 03:13 87 100 12/01/24 03:08 90 99 12/01/24 03:03 88 100 12/01/24 02:59 96 H 105/59 L 12/01/24 02:58 95 H 96 12/01/24 02:53 88 99 12/01/24 02:48 83 99 12/01/24 02:45 84 110/58 L 12/01/24 02:43 80 96 12/01/24 02:38 82 99 12/01/24 02:33 78 100 12/01/24 02:30 16 12/01/24 02:30 36.7 C 16 12/01/24 02:28 83 103/55 L 95 12/01/24 02:23 81 99 12/01/24 02:18 80 99 12/01/24 02:14 71 102/55 L 12/01/24 02:13 75 97 12/01/24 02:08 77 99 12/01/24 02:03 85 99 12/01/24 02:00 81 100/50 L 12/01/24 01:58 82 99 12/01/24 01:53 83 99 12/01/24 01:48 82 99 12/01/24 01:44 83 97/52 L 12/01/24 01:43 81 99 12/01/24 01:38 80 100 12/01/24 01:33 88 100 12/01/24 01:29 87 107/59 L 12/01/24 01:28 89 99 12/01/24 01:23 85 98 12/01/24 01:18 83 99 12/01/24 01:15 80 109/58 L 12/01/24 01:13 78 96 12/01/24 01:08 82 100 05 01:03 78 100 12/01/24 01:00 78 93/52 L 05 00:58 76 99 05 00:53 82 99 05 00:48 83 99 05 00:45 76 103/53 L 12/01/24 00:43 79 100 0520 00:40 18 05 00:40 36.9 C 18 12/01/24 00:38 82 100 05 00:33 77 100 05/20/25 00:28 92 H 108/59 L 97 12/01/24 00:23 83 99 12/01/24 00:18 83 98 12/01/24 00:15 81 102/56 L 12/01/24 00:13 77 99 12/01/24 00:08 80 99 12/01/24 00:03 82 98 11/30/24 23:59 79 11/30/24 23:59 111/55 L 11/30/24 23:58 98 11/30/24 23:58 79 11/30/24 23:53 98 11/30/24 23:53 83 11/30/24 23:48 100 11/30/24 23:48 87 11/30/24 23:44 84 11/30/24 23:44 113/58 L 11/30/24 23:43 98 11/30/24 23:43 86 11/30/24 23:38 98 11/30/24 23:38 87 11/30/24 23:33 99 11/30/24 23:33 90 11/30/24 23:29 89 11/30/24 23:29 113/59 L 11/30/24 23:28 100 11/30/24 23:28 90 11/30/24 23:23 18 11/30/24 23:23 36.8 C 18 11/30/24 23:23 99 11/30/24 23:23 85 11/30/24 23:18 98 11/30/24 23:18 77 11/30/24 23:13 100 11/30/24 23:13 77 11/30/24 23:08 99 11/30/24 23:08 93 H 11/30/24 23:08 132/64 11/30/24 23:03 97 11/30/24 23:03 82 11/30/24 23:02 78 11/30/24 23:02 133/63 11/30/24 22:58 97 11/30/24 22:58 80 11/30/24 22:58 129/60 11/30/24 22:53 98 11/30/24 22:53 87 11/30/24 22:52 82 11/30/24 22:52 135/59 L 11/30/24 22:48 97 11/30/24 22:48 85 11/30/24 22:48 86 11/30/24 22:48 136/65 11/30/24 22:43 98 11/30/24 22:43 81 11/30/24 22:42 85 11/30/24 22:42 138/67 11/30/24 22:38 98 11/30/24 22:38 80 11/30/24 22:37 81 11/30/24 22:37 136/71 11/30/24 22:34 86 11/30/24 22:34 134/72 11/30/24 22:33 98 11/30/24 22:33 85 11/30/24 22:28 98 11/30/24 22:28 87 11/30/24 22:27 79 11/30/24 22:27 137/73 11/30/24 22:25 88 11/30/24 22:25 136/71 11/30/24 22:23 99 11/30/24 22:23 89 11/30/24 22:18 99 11/30/24 22:18 94 H 11/30/24 22:17 83 11/30/24 22:17 131/63 11/30/24 22:13 100 11/30/24 22:13 84 11/30/24 22:13 83 11/30/24 22:13 131/61 11/30/24 22:08 100 11/30/24 22:08 94 H 11/30/24 22:07 85 11/30/24 22:07 135/62 11/30/24 22:03 99 11/30/24 22:03 86 11/30/24 22:02 88 11/30/24 22:02 131/65 11/30/24 21:58 99 11/30/24 21:58 82 11/30/24 21:57 86 11/30/24 21:57 128/67 11/30/24 21:55 82 11/30/24 21:55 128/68 11/30/24 21:53 99 11/30/24 21:53 94 H 11/30/24 21:53 133/72 11/30/24 21:51 82 11/30/24 21:51 131/75 11/30/24 21:48 100 11/30/24 21:48 95 H 11/30/24 21:43 99 11/30/24 21:43 92 H 11/30/24 21:39 86 11/30/24 21:39 139/77 11/30/24 21:38 100 11/30/24 21:38 96 H 11/30/24 21:33 100 11/30/24 21:33 125 H 11/30/24 21:28 100 11/30/24 21:28 97 H 11/30/24 20:24 88 11/30/24 20:24 123/71 11/30/24 19:15 Room Air 11/30/24 19:02 18 11/30/24 19:02 36.9 C 18 11/30/24 19:02 93 H 11/30/24 19:02 126/75 11/30/24 18:26 93 H 11/30/24 18:26 131/72 11/30/24 17:17 96 H 11/30/24 17:17 139/72 Transfer of Care Handoff Completed per policy Notes Mental Status: alert / awake / arousable Patient Amnestic to Procedure: Yes Nausea / Vomiting: adequately controlled Pain: adequately controlled Airway Patency, RR, SpO2: stable & adequate BP & HR: stable & adequate Hydration State: stable & adequate Anesthetic Complications: no major complications apparent
[2024-12-01] MEDS: SIMETHICONE 80 MG CHEW PO SCH (17:33)
[2024-12-01] MEDS: OXYTOCIN 20 UNITS/LR 1,002 ML IV SCH (17:34)
[2024-12-01] MEDS: DOCUSATE SODIUM 100 MG CAP PO SCH (19:59)
[2024-12-01] MEDS: KETOROLAC 30 MG/ML VIAL IV SCH (21:33)
[2024-12-01] MEDS: ACETAMINOPHEN 325 MG TAB PO SCH (21:34)
[2024-12-02] MEDS ORDERED: ceFAZolin 3000MG 3,000 MG/72.5 ML BAG IV SCH ×2 (06:00)
[2024-12-02] MEDS ORDERED: ACETAMINOPHEN 500 MG TAB PO SCH (06:00)
[2024-12-02] MEDS ORDERED: CITRIC ACID/SODIUM CITRATE 15 ML UDC PO SCH (06:00)
[2024-12-02 06:43] LABS: Basophils # (auto) 0.02 K/uL (0.00-0.20); Basophils % (auto) 0.2 %; Eosinophils # (auto) 0.04 K/uL (0.00-0.50); Eosinophils % (auto) 0.3 %; Hematocrit (blood only) 27.1 % (37.0-47.0); Immature Granulocytes % (auto) 0.8 %; Lymphocytes # (auto) 2.46 K/uL (1.20-3.40); Lymphocytes % (auto) 20.7 %; Mean Corpuscular Hemoglobin 27.1 pg (25.0-34.0); Mean Corpuscular Hgb Conc 33.2 g/dL (32.0-36.0); Mean Corpuscular Volume 81.6 fL (80.0-100.0); Mean Platelet Volume 9.3 fL (9.4-12.4); Monocytes # (auto) 1.02 K/uL (0.11-0.59); Monocytes % (auto) 8.6 %; Neutrophils # (auto) 8.24 K/uL (1.40-6.50); Neutrophils % (auto) 69.4 %; Platelet Count 268 K/uL (130-400); RDW Coefficient of Variation 13.7 % (11.5-14.5); RDW Standard Deviation 40.6 fL (36.4-46.3); Red Blood Count 3.32 M/uL (4.20-5.40); White Blood Count 11.88 K/ul (4.8-10.8)
--- NOTE | 2024-12-02 07:10 | Obstetrical Progress Note ---
Date of Service December 02, 2024 Assessment & Plan (1) Encounter for assessment: (2) delivery, delivered, current hospitalization: Plan Doing well. Continue routine pp care. Encourage ambulation. Day #:: 1 Subjective Ambulation: ambulating normally Voiding: no voiding problems Passing Gas:: Yes Diet Tolerance:: regular diet Lochia:: Small Feeding Type:: bottle feeding Feeling well, pain controlled. Physical Exam Constitutional WD/WN, vitals as above Respiratory normal respiratory effort, lungs clear to auscultation Cardiovascular RRR, no murmur, no edema Extremities: + edema (tr); no calf tenderness Gastrointestinal (Abdomen) soft, nt, nd, ff/nt at u incision c/d/i Psychiatric A+Ox3, euthymic affect Results & Data Vital Signs (Past 12 Hours) Vital Signs Temp Pulse Resp BP Pulse Ox O2 Del Method 12/02/24 06:00 16 99 12/02/24 05:00 14 99 12/02/24 04:00 16 99 12/02/24 04:00 36.6 C 80 16 134/85 99 Room Air 12/02/24 03:00 16 99 12/02/24 02:00 14 99 12/02/24 01:00 14 98 12/02/24 00:00 16 99 12/02/24 00:00 36.9 C 83 16 136/74 99 Room Air 12/01/24 23:00 12 99 12/01/24 22:00 16 98 12/01/24 21:00 16 99 12/01/24 20:00 36.8 C 78 16 145/80 H 99 Room Air 12/01/24 20:00 16 99
[2024-12-02] MEDS: FERROUS SULFATE 325 MG TAB PO SCH (08:10)
[2024-12-02] MEDS: PRENATAL VITAMIN 1 TAB PO SCH (08:11)
[2024-12-02] MEDS ORDERED: KETOROLAC 30 MG/ML VIAL IV PRN (15:20)
[2024-12-02] MEDS: oxyCODONE HCL IR 5 MG TAB (IMMEDIATE RELEASE) PO PRN (19:20)
[2024-12-02] MEDS: bisacodyL 5 MG TABEC PO SCH (19:20)
[2024-12-02] MEDS: IBUPROFEN 600 MG TAB PO SCH (22:20)
[2024-12-03 00:09] VITALS: PULSE 80
--- NOTE | 2024-12-03 06:18 | Obstetrical Progress Note ---
Date of Service December 03, 2024 Assessment & Plan (1) Encounter for assessment: (2) delivery, delivered, current hospitalization: Plan Brittany is a 29yo PPD 2 s/p . Doing well, VSS. Continue routine pp care. Encourage ambulation. Pain control with ibuprofen Followup in 6wks. Admission and Anticipated Discharge Date Admission Date: November 30, 2024 Supervising Physician Co-Signing Physician Notes Resident Physician Supervision Note: I interviewed and examined the patient. Discussed with Dr. Smith and agree with findings and plan as documented in the note. Any exceptions or clarifications are listed here: POD2 s/p pCS, doing well. Stable for dc home Documented By: Corin Park MD Subjective Brittany is a 29yo PPD 2 s/p . Feels well Ambulation: yes Void: urinating, no BM yet Gas: yes Lochia: small Diet: tolerating well Sx: none Physical Exam Physical Exam: Gen: no acute distress CV: RRR, no m/r/g Resp: clear to auscultation b/l GI/Abd: +BS, fundus firm at lvl of umbilicus, scar healing well with steristrips in place, mild ecchymosis LE: no edema, nontender to palpation Results & Data Vital Signs (Past 12 Hours) Vital Signs Temp Pulse Resp BP O2 Del Method 12/03/24 00:06 36.9 C 80 16 121/81 Room Air Resident Activity Tracking Resident Involvement: Resident Care Provided Care Provided: OB Delivery (1) Encounter for assessment visit type: exam and care immediately after delivery Qualified Code(s): Z39.0 - Encounter for care and examination of mother immediately after delivery
[2024-12-03 06:26] LABS: Hematocrit (blood only) 28.7 % (37.0-47.0); Hemoglobin 9.5 g/dl (12.0-16.0)
[2024-12-03 07:59] VITALS: BP 129/76; RESP 18; TEMP 98.1; O2SAT 99
[2024-12-03] MEDS ORDERED: bisacodyL 10 MG SUPP PR PRN (15:20)
[2024-12-03] MEDS ORDERED: IBUPROFEN 600 MG TAB PO PRN (15:20)
[2024-12-03] MEDS ORDERED: ACETAMINOPHEN 325 MG TAB PO PRN (21:20)
== END 2024-12-03 10:25 | disposition home or self-care (01) | DRG 788 ==
LOC: 4S1 13:25 → 4E2 12-01 17:40